=== PATIENT | female | born 1950 | race Caucasian/White ===

== ENCOUNTER → 2018-09-03 | Outpatient (CLI) | payer MEDICARE ==
[2018-09-03 13:04] LABS: HCT 46.4 % (34.0-46.0); HGB 14.6 gm/dL (11.4-16.0); MCHC 31.5 g/dL (31.0-37.0); Mean Platelet Volume 6.7; Platelet Count 421 k/uL (150-450); RBC 5.04 m/uL (3.80-5.40); RDW 13.3 % (11.5-15.5); WBC 7.5 k/uL (3.8-10.6)
[2018-09-03 13:09] LABS: Appearance,Urine Clear (Clear); Bilirubin,Urine Negative (Negative); Blood,Urine Negative (Negative); Color,Urine Light Yellow; Glucose,Urine (UA) Negative (Negative); Ketones,Urine Negative (Negative); Leukocyte Esterase,Urine Negative (Negative); Nitrite,Urine Negative (Negative); PH, Urine 5.5 (5.0-8.0); Protein,Urine Negative (Negative); Urobilinogen,Urine <2.0 mg/dL (<2.0)
[2018-09-03 13:18] LABS: ALT 28 U/L (9-52); AST 25 U/L (14-36); Albumin 4.9 g/dL (3.5-5.0); Alkaline Phosphatase 89 U/L (38-126); Anion Gap 10 mmol/L; Blood Urea Nitrogen 20 mg/dL (7-17); Calcium 10.7 mg/dL (8.4-10.2); Carbon Dioxide 27 mmol/L (22-30); Chloride 103 mmol/L (98-107); Glucose 96 mg/dL (74-99); Potassium 4.7 mmol/L (3.5-5.1); Sodium 140 mmol/L (137-145); Total Bilirubin 0.5 mg/dL (0.2-1.3); Total Protein 8.2 g/dL (6.3-8.2)
[2018-09-03 13:19] LABS: INR 0.9 (<1.2); Prothrombin Time 9.7 sec (9.0-12.0)
== END ==
LOC: LABPAT 11:49
PROVIDERS: ATTEND Orthopaedic Surgery Sports Medicine
DX: Z01.818 Encounter for other preprocedural examination (principal); Z01.812 Encounter for preprocedural laboratory examination; Z51.81 Encounter for therapeutic drug level monitoring; Z79.01 Long term (current) use of anticoagulants
CPT/HCPCS: 36415; 80053; 81003; 85027; 85610; 85730; 87070; 93005

== ENCOUNTER 2018-09-18 12:08 | Inpatient (IN) | payer MEDICARE ==
[~2018-09-18 12:08] MED LIST: ACETAMINOPHEN TAB 500 MG TAB PO ONE; DEXAMETHASONE SOD PHOSPHATE 10 MG/ML 1 ML VIAL IV ONE; HYDROmorphone 0.5 MG/0.5 ML SYRINGE IVP PRN; LIDOCAINE 1% 20 ML VIAL (10MG/ML) FOR IV START INTRADERMA PRN; MELOXICAM 7.5 MG TAB PO ONE; ONDANSETRON 4 MG/2 ML VIAL IVP ONE; ROPIVACAINE 246.25 MG, EPINEPHrine 0.5 MG, KETOROLAC 30 MG, cloNIDine HCL/PF 80 MCG, WA... MISCELLANE ONE; SCOPOLAMINE 1.5MG/72HR PATCH TRANSDERM ONE; TRANEXAMIC ACID 1,000 MG in SODIUM CHLORIDE 0.9% 100 ML IVPB ONE; ceFAZolin IN SWFI 2 GM/20 ML SYRINGE IVP ONE
[2018-09-18] MEDS ORDERED: BISACODYL 10 MG SUPP RECTAL PRN (12:32)
[2018-09-18] MEDS ORDERED: HYDROmorphone 0.5 MG/0.5 ML SYRINGE IVP PRN ×2 (12:32)
[2018-09-18] MEDS ORDERED: TEMAZEPAM 15 MG CAP PO PRN (12:32)
[2018-09-18] MEDS ORDERED: NALOXONE 0.4 MG/ML 1 ML VIAL IV PRN (12:32)
[2018-09-18] MEDS ORDERED: MAGNESIUM HYDROXIDE 2,400 MG/10 ML CUP PO PRN (12:32)
[2018-09-18] MEDS ORDERED: HYDROcodone/APAP 10-325MG 1 EACH TAB PO PRN (12:32)
[2018-09-18] MEDS ORDERED: HYDROcodone/APAP 5-325MG 1 EACH TAB PO PRN (12:32)
[2018-09-18] MEDS ORDERED: ONDANSETRON 4 MG/2 ML VIAL IVP PRN (12:32)
[2018-09-18] MEDS ORDERED: NA PHOS,M-B/NA PHOS,DI-BA 133 ML ENEMA RECTAL PRN (12:32)
[2018-09-18] MEDS ORDERED: HYDROcodone/APAP 7.5-325MG 1 EACH TAB PO PRN (12:32)
[2018-09-18] MEDS: LACTATED RINGERS 1,000 ML IV SCH ×2 (13:45→19:29)
[2018-09-18] MEDS ORDERED: PROPOFOL 10 MG/ML 20 ML VIAL IV ONE (15:41)
[2018-09-18] MEDS ORDERED: diphenhydrAMINE 50 MG/ML 1 ML VIAL ONE (15:41)
[2018-09-18] MEDS ORDERED: TRANEXAMIC ACID 1,000 MG/10 ML VIAL ONE (15:41)
[2018-09-18] MEDS ORDERED: SODIUM CHLORIDE 0.9% 100 ML BAG ONE (15:41)
[2018-09-18] MEDS ORDERED: MIDAZOLAM 2 MG/2 ML VIAL ONE (15:41)
[2018-09-18] MEDS ORDERED: ceFAZolin 3,000 MG in SODIUM CHLORIDE 0.9% IRRIGATIO 3,000 ML IRRIGATION ONE (15:43)
[2018-09-18] MEDS ORDERED: LACTATED RINGERS 1,000 ML IV ONE (17:09)
--- NOTE | 2018-09-18 18:18 | XR ---
PROCEDURE: XR knee limited LT - 2V DATE AND TIME: 09/18/2018 5:49 PM CLINICAL INDICATION: PHH; Evaluation for Postop abnormality and alignment TECHNIQUE: Department protocol with AP and crosstable lateral COMPARISON: None FINDINGS: TKR appears in anatomic positioning and alignment. Postprocedure changes noted, and no unex pected findings. IMPRESSION: Postoperative left knee - 2 views
[2018-09-18] MEDS: HYDROmorphone 0.5 MG/0.5 ML SYRINGE IVP PRN ×2 (19:12→22:47)
[2018-09-18 20:47] VITALS: BMI 30.7
[2018-09-18] MEDS: HYDROcodone/APAP 5-325MG 1 EACH TAB PO PRN (20:49)
[2018-09-18] MEDS: ASPIRIN 325 MG TAB PO SCH (20:49)
[2018-09-18] MEDS: SENNOSIDES-DOCUSATE SODIUM 1 EACH TAB PO SCH (20:49)
--- NOTE | 2018-09-18 22:06 | P.CONS ---
History of Present Illness - Reason for Consult Consult date: 09/18/18 Medical management of hypertension Requesting physician: Philip Lau - Chief Complaint Consult for medical management of hypertension - History of Present Illness The patient is a 68-year-old female with past medical history of essential hypertension for the last 6-8 months who is admitted under primary orthopedic service under Dr. Lau after having a total left knee replacement earlier today secondary to her history of severe left knee osteoarthritis. The patient reports poor pain control and rates her pain at a 9 out of 10 in the posterior left popliteal area. She otherwise has no complaints she denies any chest pain, she denies lightheadedness, she denies blurry vision focal weakness or slurred speech, she denies shortness of breath nausea vomiting or abdominal pain. Review of Systems Pertinent positives per HPI all other systems otherwise negative Past Medical History Past Medical History: Osteoarthritis (OA) History of Any Multi-Drug Resistant Organisms: None Reported Past Surgical History: Section, Joint Replacement Additional Past Surgical History / Comment(s): RIGHT KNEE REPLACED. BREAST BX BOTH SIDES, NEG. Past Anesthesia/Blood Transfusion Reactions: No Reported Reaction, Motion Sickness Past Psychological History: No Psychological Hx Reported Smoking Status: Former smoker Past Alcohol Use History: Rare Additional Past Alcohol Use History / Comment(s): QUIT 45 YRS AGO. Past Drug Use History: None Reported - Past Family History Sister(s) Family Medical History: Deep Vein Thrombosis (DVT) Mother Family Medical History: Cancer Additional Family Medical History / Comment(s): BREAST Father Family Medical History: Cancer Additional Family Medical History / Comment(s): ESOPHAGUS Son(s) Additional Family Medical History / Comment(s): LYMPHOMA Medications and Allergies Home Medications Medication Instructions Recorded Confirmed Type Naproxen Sodium [Aleve] 220 - 440 mg PO Q6H PRN 09/13/18 09/18/18 History amLODIPine BESYLATE 10 mg PO QAM 09/13/18 09/18/18 History traMADol HCL [Ultram] 50 mg PO Q6H PRN 09/13/18 09/18/18 History Allergies Allergy/AdvReac Type Severity Reaction Status Date / Time morphine Allergy Nausea & Verified 09/13/18 09:45 Vomiting Physical Exam Vitals: Vital Signs Temp Pulse Pulse Resp BP BP Pulse Ox 09/18/18 20:45 83 134/80 97 09/18/18 20:30 84 151/83 95 09/18/18 20:15 78 169/87 98 09/18/18 20:00 79 171/91 98 09/18/18 19:45 85 152/79 97 09/18/18 19:32 97.6 F 78 19 146/83 99 09/18/18 19:30 76 158/81 98 09/18/18 19:00 85 151/76 98 09/18/18 18:45 75 146/83 99 09/18/18 18:20 68 16 128/60 97 09/18/18 18:05 73 16 136/63 92 L 09/18/18 17:50 73 16 144/60 93 L 09/18/18 17:35 97.5 F L 81 16 128/88 97 09/18/18 13:40 98.5 F 73 16 147/72 98 Intake and Output 09/18/18 09/18/18 09/18/18 06:59 14:59 22:59 Intake Total 300 1201 Output Total 100 Balance 300 1101 Intake: IV 300 1201 Output: Estimated Blood Loss 100 Other: # Voids 1 Constitutional: No acute distress, conversant, pleasant Eyes: Anicteric sclerae, moist conjunctiva, no lid-lag, PERRLA ENMT: NC/AT,Oropharynx clear, no erythema, exudates Neck:Supple, FROM, no masses, or JVD, No carotid bruits; No thyromegaly Lungs: Clear to auscultation, Clear to percussion, Normal respiratory effort, no accessory muscle use Cardiovascular: Heart regular in rate and rhythm, No murmurs, gallops, or rubs no peripheral edema Abdominal: Soft Nontender, nom distended, no guarding, no rebound or rigidity, Normoactive bowel sounds No hepatomegaly, No splenomegaly, No palpable mass No abdominal wall hernia noted Skin: Normal temperature, tone, texture, turgor, No induration No subcutaneous nodules, No rash, lesions, No ulcers Extremities:No digital cyanosis No clubbing, Pedal pulses intact and symmetrical Radial pulses intact and symmetrical Normal gait and station, No calf tenderness Psychiatric: Alert and oriented to person, place and time, Appropriate affect I ntact judgement Neuro: Muscles Strength 5/5 in all 4 extremities, Sensation to light touch grossly present throughout, Cranial nerves II-XII grossly intact. No focal sensory deficits Assessment and Plan (1) Essential hypertension Current Visit: Yes Status: Acute Code(s): I10 - ESSENTIAL (PRIMARY) HYPERTENSION SNOMED Code(s): 70240824 (2) Status post total left knee replacement Current Visit: Yes Status: Acute Code(s): Z96.652 - PRESENCE OF LEFT ARTIFICIAL KNEE JOINT SNOMED Code(s): 1383961525085 (3) History of osteoarthritis Current Visit: Yes Status: Acute Code(s): Z87.39 - PERSONAL HISTORY OF DISEASES OF THE MS SYS AND CONN TISS SNOMED Code(s): 194752071 Plan: The patient is admitted under primary orthopedic service will defer our pain management to Dr. Lau, Patient is medically stable at this time with episodes of hypertension likely precipitated by poor pain control. Patient recently received a dose of [place] we will plan to restart her home antihypertensive re gimen with Norvasc 10 mg by mouth daily. We'll continue to follow her clinical course. We appreciate this consult for further questions or concerns please not hesitate to contact the sound inpatient team
[2018-09-18] MEDS: ceFAZolin IN SWFI 2 GM/20 ML SYRINGE IVP SCH (22:48)
--- NOTE | 2018-09-18 23:08 | OP ---
OPERATIVE REPORT DATE OF PROCEDURE: 09/18/2018 SURGEON: Philip Lau MD. DIRECTOR OF AUTOMATION: Brandon GEIGER. PREOPERATIVE DIAGNOSIS: Left knee osteoarthrosis. POSTOPERATIVE DIAGNOSIS: Left knee osteoarthrosis. OPERATION: Left total knee arthroplasty. ANESTHESIA: Spinal with sedation. ESTIMATED BLOOD LOSS: 100 mL. TOURNIQUET TIME: 49 minutes at 250 mmHg. COMPLICATIONS: None apparent. DRAINS: None. DISPOSITION: Post-Anesthesia Care Unit. INDICATIONS: Shagufta is a very pleasant 68-year-old female with longstanding history of left knee pain. History and physical examination were consistent with advanced left knee osteoarthrosis. She has been through significant nonoperative management up to this point. Further treatment options were discussed and she decided to go forward with left total knee arthroplasty. The risks of the procedure were discussed with her in detail. These risks include but are not limited to risk of infection, nerve damage, bleeding, pain, and a small risk of deep vein thrombosis which could lead to fatal pulmonary embolism. There is also a risk of loosening of the implant which could require revision operation. The patient understands these risks. All of her questions were answered to her satisfaction. Appropriate informed consent was obtained. DESCRIPTION OF THE PROCEDURE: The patient was identified in the preoperative holding area. Surgical site was marked by both the patient and myself. She was given 2 grams of Ancef IV for prophylactic purposes. She was then transferred to the operative suite. She was placed supine on the operating room table. Spinal anesthetic was then administered and dosed per the anesthesia department without apparent complication. Examination under anesthesia was then performed. The patient was 2-3 degrees shy of full extension. She had 95 degrees of flexion, and the medial collateral ligament, lateral collateral ligament and posterior cruciate ligaments were stable. Tourniquet was then placed high on the left upper thigh, well padded in preparation for surgery. The patient's left lower extremity was then prepped and draped in usual sterile fashion. Standard surgical pause was then undertaken to ensure that we were operating on the correct site and that appropriate preoperative antibiotics had been given. All staff in the room were in agreement and we proceeded. The outlines of the patella were marked with a surgical pen. A planned 12 cm vertical incision centered over the patella was marked with the surgical pen. The leg was then exsanguinated with an Esmarch dressing. The knee was then flexed and the tourniquet was inflated to 250 mmHg. The total tourniquet time for the procedure was 49 minutes. Incision was then made with a 10 blade scalpel. Dissection was carried down sharply to the overlying fascia. Great care was taken to minimize the skin flaps. The knee was then exposed using a standard medial parapatellar approach. A small cuff of quadriceps tendon was left for suturing. She was in quite a bit of varus preoperatively. A medial release was then made. Superficial medial collateral ligament was dissected off of the bone around to the posterior aspect of the proximal tibia. The medial meniscus was then excised as well. The lateral meniscus was also released anteriorly. The leg was then externally rotated. The patella was everted. The knee was flexed. Retractors were then placed to protect the collateral ligaments. I then proceeded to remove the infrapatellar fat pad. This was excised sharply tangentially with the fibers of the patellar tendon. I then proceeded to remove the peripheral osteophytes. This was done with a rongeur. I then proceeded with the distal femoral resection. She did have near-full extension. The planned 9 mm resection was then done. The femoral canal was then entered in the midline of the femur approximately 10 mm anterior to the origin of the posterior cruciate ligament. The devin was then advanced down to the center of the femur and placed intramedullary. Based on the preoperative radiographs, the angle between the anatomic and mechanical axis of the femur was approximately 4-5 degrees. The valgus angle of the distal femoral cutting guide was then set at 4 degrees for the left knee. The distal femoral cutting guide was then advanced over the intramedullary devin. This was seated firmly against the femur. I then, as mentioned, planned to take 9 mm off the distal femur. The cutting block was then secured onto the femur with pins. The jig was removed. The distal femoral cut was made through the slot of the block. The pins were then removed and the distal femoral cutting block was removed. The accuracy of the distal femoral cuts was checked with 2 flat bars. I then proceeded to femoral sizing. Posterior referencing sizing guide was held firmly against the resected distal surface of the femur. The posterior condyles were resting on the posterior plane of the guide. The sizing guide was then placed onto the anterior femur. The size was measured as a size 8. I then assessed for femoral rotation. The plan was for 3 degrees of external rotation. Three degrees of external rotation was placed onto the jig. These holes were then marked. I then confirmed the rotation by 3 separate methods. This was done using the epicondylar axis as well as [place] line and posterior referencing. It was deemed that the external rotation was proper. I then went forward with placing the femoral cutting block. This was placed over the previously placed pin holes. The Satya wing was then placed onto the anterior slots to ensure that we would not notch the anterior femur with the anterior femoral cut. I then proceeded with the anterior femoral cut. This was flush with the anterior cortex of the femur. The posterior cuts were then made followed by the anterior chamfer cut, then the posterior chamfer cut. The cutting block was then removed. Throughout the resection, the collateral ligaments were protected with retractors. I then placed a trial size 8 femur. It fit slightly wide mediolateral, but the narrow fit very nicely, and it fit flush with the distal end of the femur. The drill holes were then made. I then proceeded with the tibial cut. I planned for a cruciate-retaining knee. The guide was placed and set for varus, valgus and for slope. The height was set for an approximate 2 mm resection from the medial tibial plateau, which was the lower side. I was happy with the alignment and the amount of resection. The cutting block was then pinned to the proximal tibia. The alignment devin was removed and the proximal tibia was resected with a reciprocating saw. Again this was done with retractors protecting the collateral ligaments as well as the posterior cruciate ligament. I then proceeded to evaluate the flexion and extension gaps. A 10 mm block was then placed. The flexion and extension gaps were equal. I then proceeded with resection of the posterior osteophytes. She had very minimal posterior osteophytes. This was done using a curved osteotome. This resected the posterior osteophytes, and posterior capsule stripping was also done off the posterior aspect of the femur at this time. The osteophytes were then removed. I then proceeded with resection of the patella. The thickness of the patella was measured using the caliper. The thickness was 22 mm. The thickness of the anticipated patellar dome was taken into account. Resection was then performed and confirmed to be equal in 4 quadrants using a caliper. Approximately 14 mm of bone remained after the resection. A 32 x 8.5 mm standard patellar trial was then placed. The holes were drilled. The trial was then placed. I then proceeded with sizing the tibial plate. A size E tibial plate fit very nicely. I then placed the trial femur, the tibial tray and the patellar button. A 10 mm trial tibial insert was also placed. The components fit very nicely. She had full extension and flexion. The extension and flexion gaps were equal and stable to both varus and valgus stress. The patella tracked appropriately. Tibial tray rotation was then marked with a Bovie. This was externally rotated properly. I then proceeded with tibial preparation. I first drilled the femoral holes and removed the femoral component. The tibial tray was then set for proper external rotation as well as mediolateral placement onto the tibia. It was then pinned into place. I then proceeded with punching the keel. I then decided to proceed with cementing of all of our components. The knee was thoroughly irrigated with sterile saline solution via pulse lavage. The lateral geniculate artery was identified and cauterized. All blood was removed from the bone of the tibia, femur and patella with pulse lavage. I then proceeded with cementing. Two packs of antibiotic bone cement were prepared on the back table by the surgical training specialist. I then proceeded with cementing of the tibia first. The cement was impacted into the keel as well as deeply seated into the bone. A second coat of cement was then placed. The tibia was then impacted into place. Excess cement was removed with [place]'s and jokers. I then proceeded with cementing of the femoral component. The femoral component was also cemented using standard technique. Excess cement was removed. A 10 mm trial insert was then placed into the knee. It was brought into full extension with a constant axial load placed until the cement had hardened. The patellar component was then cemented. This was held firmly with a compressive device until the cement had dried. When the cement had dried, the knee was taken out of extension. All excess cement was removed from around the prosthesis. I then trialed the knee with a 10 mm insert, then a 12 mm inset and then a 14 mm insert. Flexion and extension gaps felt much better with the 14. The knee was stable. It came into full extension. I decided to go forward with a 14 mm cross-linked cruciate-retaining tibial insert. Polyethylene was then placed onto the tibial tray and locked into place. The knee was then reduced. The knee was again further irrigated with sterile saline solution with antibiotic added. The tourniquet was then deflated. The total tourniquet time for the procedure was 49 minutes at 250 mmHg. Final components were Tabatha Persona size 8 narrow cruciate-retaining femoral component, a size E tibial tray, a 14 mm medial- congruent cruciate-retaining polyethylene insert and a 32 x 8.5 mm patella. I then proceeded with closure. Again the knee was thoroughly irrigated. The quadriceps tendon and the medial retinaculum were reapproximated with #2 Ethibond suture. The extensor mechanism was then closed with a running #2 Quill suture. Subcutaneous tissues were then closed with 2-0 Vicryl interrupted suture. The skin was closed with a running 3-0 Quill suture. Dermabond was applied to the incision. Sterile compressive dressings were then applied. All sponge and needle counts were deemed correct prior to closure. The patient tolerated the procedure without apparent complication. She was transferred to the recovery room in stable condition. MMODL / IJN: [id number] /
[2018-09-19] MEDS: HYDROmorphone 0.5 MG/0.5 ML SYRINGE IVP PRN ×3 (01:41→19:12)
[2018-09-19] MEDS: LACTATED RINGERS 1,000 ML IV SCH ×3 (03:03→13:33)
[2018-09-19] MEDS: HYDROcodone/APAP 5-325MG 1 EACH TAB PO PRN ×4 (04:39→23:05)
[2018-09-19] MEDS: DIAZEPAM 5 MG TAB PO PRN ×3 (05:46→23:11)
[2018-09-19] MEDS: ceFAZolin IN SWFI 2 GM/20 ML SYRINGE IVP SCH (05:47)
[2018-09-19] MEDS: MULTIVITAMINS, THERA 1 EACH TAB PO SCH (08:24)
[2018-09-19] MEDS: ASPIRIN 325 MG TAB PO SCH ×2 (08:24→21:18)
[2018-09-19] MEDS: amLODIPine 10 MG TAB PO SCH (08:24)
[2018-09-19] MEDS: hydrOXYzine PAMOATE 25 MG CAP PO PRN ×2 (08:27→23:10)
[2018-09-19] MEDS: oxyCODONE ER 10 MG TAB.ER.12H PO SCH ×2 (09:33→21:18)
[2018-09-19 10:02] LABS: Basophils % (A) 0 %; Eosinophils % (A) 0 %; HGB 12.8 gm/dL (11.4-16.0); Lymphocytes # (A) 1.4 k/uL (1.0-4.8); Lymphocytes % (A) 9 %; MCH 29.1 pg (25.0-35.0); MCV 90.9 fL (80.0-100.0); Mean Platelet Volume 7.2; Monocytes % (A) 6 %; Neutrophils # (A) 13.4 k/uL (1.3-7.7); Neutrophils % (A) 83 %; Platelet Count 416 k/uL (150-450); RDW 13.6 % (11.5-15.5); WBC 16.1 k/uL (3.8-10.6)
--- NOTE | 2018-09-19 10:17 | P.PN ---
Subjective Progress Note Date: 09/19/18 Principal diagnosis: Left knee replacement Patient was seen and examined. No acute events overnight. Patient reports left knee pain, well controlled with current pain medication. She denies any chest pain, shortness of breath or palpitations. Plans to do rehab at home. Urin ating okay. No bowel movement yet, but passing gas. Objective - Vital Signs Vital signs: Vital Signs Temp 98.6 F 09/19/18 07:00 Pulse 66 09/19/18 07:00 Resp 16 09/19/18 07:00 BP 131/77 09/19/18 07:00 Pulse Ox 95 09/19/18 07:00 Intake & Output 09/18/18 09/19/18 09/19/18 18:59 06:59 18:59 Intake Total 1501 450 Output Total 100 Balance 1401 450 Intake: IV 1501 Oral 450 Output: Estimated Blood Loss 100 Other: Voiding Method Toilet # Voids 2 - Exam General: [non toxic], [no distress], [appears at stated age] Derm: [warm], [dry] Head: [atraumatic], [normocephalic], [symmetric] Eyes: [EOMI], [no lid lag], [anicteric sclera] Mouth: [no lip lesion], [mucus membranes moist] Cardiovascular: [S1S2 reg], [no murmur], [positive DP pulse bilateral] Lungs: [CTA bilateral], [no rhonchi, no rales] , [no accessory muscle use] Abdominal: [soft], [ nontender to palpation], [no guarding], [no appreciable organomegaly] Ext: [no gross muscle atrophy], [no edema], [no contractures], [left knee dressing clean dry and intact] Psych: [Alert], [oriented], [appropriate affect] - Labs CBC & Chem 7: 09/19/18 08:59 Labs: Abnormal Lab Results - Last 24 Hours (Table) 09/19/18 Range/Units 08:59 WBC 16.1 H (3.8-10.6) k/uL Neutrophils # 13.4 H (1.3-7.7) k/uL Assessment and Plan Assessment: Assessment and Plan Leukocytosis Hypertension Left knee osteoarthritis status post total left knee replacement Leukocytosis of 16.1. Likely reactive due to pain and stress. Patient afebrile, no signs of infection. Plan: Repeat CBC tomorrow. BP 131/77. Anticipate BP to be elevated due to pain. Plan: Ensure adequate pain control. Continue amlodipine. Monitor vitals, adjust medications as necessary. POD 1. Plan: Ensure adequate pain control. Weightbearing as per orthopedic recommendations. Follow orthopedic recommendations. Follow PT consult. Continue aspirin for DVT prophylaxis. Thank you for this consult. Please call with any additional questions.
--- NOTE | 2018-09-19 10:33 | P.PN ---
Subjective Progress Note Date: 09/19/18 Principal diagnosis: S/P Left TKA Patient is seen at bedside this morning. She is postop day #1 from left total knee arthroplasty. She has pain at the surgical site as expected but denies any new complaints. She denies numbness, tingling or calf pain. Review of systems is negative for fever, chills, chest pain, shortness of breath or other Objective - Vital Signs Vital signs: Vital Signs Temp 98.6 F 09/19/18 07:00 Pulse 66 09/19/18 07:00 Resp 16 09/19/18 07:00 BP 131/77 09/19/18 07:00 Pulse Ox 95 09/19/18 07:00 Intake & Output 09/18/18 09/19/18 09/19/18 18:59 06:59 18:59 Intake Total 1501 450 Output Total 100 Balance 1401 450 Intake: IV 1501 Oral 450 Output: Estimated Blood Loss 100 Other: Voiding Method Toilet # Voids 2 - Exam Inspection reveals a benign surgical wound. There is no active bleeding or drainage. Neurovascular status is intact throughout the lower extremity with motor and sensation fully intact. Calf is soft and nontender. 2+ dorsalis pedis pulse and less than 2 second cap refill is present. - Constitutional General appearance: Present: no acute distress - Labs CBC & Chem 7: 09/19/18 08:59 Labs: Abnormal Lab Results - Last 24 Hours (Table) 09/19/18 Range/Units 08:59 WBC 16.1 H (3.8-10.6) k/uL Neutrophils # 13.4 H (1.3-7.7) k/uL Assessment and Plan (1) Status post total left knee replacement Narrative/Plan: She will continue with routine postop orthopedic protocol including pain management, wound care, PT, DVT prophylaxis and medical management. Expect that she will transfer to home tomorrow Current Visit: Yes Status: Acute Priority: Medium Code(s): Z96.652 - PRESENCE OF LEFT ARTIFICIAL KNEE JOINT SNOMED Code(s): 2328230954652 Time with Patient: Less than 30
[2018-09-19] MEDS: SENNOSIDES-DOCUSATE SODIUM 1 EACH TAB PO SCH (21:18)
[2018-09-20] MEDS: HYDROmorphone 0.5 MG/0.5 ML SYRINGE IVP PRN (01:49)
[2018-09-20] MEDS: LACTATED RINGERS 1,000 ML IV SCH ×3 (04:24→17:40)
[2018-09-20] MEDS: HYDROcodone/APAP 5-325MG 1 EACH TAB PO PRN (05:52)
[2018-09-20] MEDS: hydrOXYzine PAMOATE 25 MG CAP PO PRN (05:53)
[2018-09-20] MEDS: oxyCODONE ER 10 MG TAB.ER.12H PO SCH ×2 (08:20→21:33)
[2018-09-20] MEDS: ASPIRIN 325 MG TAB PO SCH ×2 (08:20→21:33)
[2018-09-20] MEDS: amLODIPine 10 MG TAB PO SCH (08:20)
[2018-09-20] MEDS: MULTIVITAMINS, THERA 1 EACH TAB PO SCH (08:20)
--- NOTE | 2018-09-20 08:51 | P.DS ---
Providers Expected date of discharge: 09/20/18 Attending physician: Philip Lau Consults: 09/18/18 12:32 Consult Physician Routine Consulting Provider: Lulu Cleary Consult Reason/Comments: post op medical mangement Do you want consulting provider notified?: Yes Primary care physician: Eugene Gross - Discharge Diagnosis(es) (1) Status post total left knee replacement Patient was admitted to the OR on 09/18/2018 to undergo a left total knee arthroplasty. She had failed conservative measures as an outpatient and desired to proceed with elective surgery after given informed consent. She underwent the above procedure which she tolerated well without complication. Postoperative hospital course has remained without complication. On day of discharge she is afebrile, vital signs stable, labs within acceptable ranges, tolerating by mouth meds and diet, voiding without difficulty, positive flatus, denies abdominal pain or calf pain, pain is controlled on oral pain medication and has no new complaints. Wound is benign, neurovascular status is intact, calf is soft and nontender, abdomen soft and nontender. Review of systems is negative for numbness, tingling, fever, chills, chest pain, shortness breath, nausea, vomiting, dizziness, headaches, slurred speech or other Current Visit: Yes Status: Acute Priority: Medium Procedures: Left TKA Patient Condition at Discharge: Good Plan - Discharge Summary Discharge Rx Participant: No New Discharge Prescriptions: New Aspirin 325 mg PO BID #60 tab Docusate [Colace] 100 mg PO BID #60 capsule HYDROcodone/APAP 7.5-325MG [[place] 7.5-325] 1 - 2 each PO Q6HR PRN #56 tab PRN Reason: Pain oxyCODONE ER [OxyCONTIN] 10 mg PO Q12HR 5 Days #10 tab No Action Naproxen Sodium [Aleve] 220 - 440 mg PO Q6H PRN PRN Reason: Pain amLODIPine BESYLATE 10 mg PO QAM traMADol HCL [Ultram] 50 mg PO Q6H PRN PRN Reason: Pain Discharge Medication List Naproxen Sodium [Aleve] 220 - 440 mg PO Q6H PRN 09/13/18 [History] amLODIPine BESYLATE 10 mg PO QAM 09/13/18 [History] traMADol HCL [Ultram] 50 mg PO Q6H PRN 09/13/18 [History] Aspirin 325 mg PO BID #60 tab 09/20/18 [Rx] Docusate [Colace] 100 mg PO BID #60 capsule 09/20/18 [Rx] HYDROcodone/APAP 7.5-325MG [[place] 7.5-325] 1 - 2 each PO Q6HR PRN #56 tab 09/20/18 [Rx] oxyCODONE ER [OxyCONTIN] 10 mg PO Q12HR 5 Days #10 tab 09/20/18 [Rx] Follow up Appointment(s)/Referral(s): Philip Lau MD [STAFF PHYSICIAN] - 10 Days Activity/Diet/Wound Care/Special Instructions: Keep wound clean and dry Take meds as directed Follow-up with Dr. Lau in office Weight bear as tolerated May shower in 3 days if no bleeding Discharge Disposition: HOME WITH HOME HEALTH SERVICES
[2018-09-20] MEDS ORDERED: oxyCODONE-APAP 10-325MG 1 EACH TAB PO PRN (09:08)
[2018-09-20] MEDS: oxyCODONE-APAP 10-325MG 1 EACH TAB PO PRN ×2 (13:07→19:16)
[2018-09-20] MEDS ORDERED: diphenhydrAMINE 25 MG CAP PO STA (17:22)
--- NOTE | 2018-09-20 17:27 | P.PN ---
Subjective Progress Note Date: 09/20/18 Principal diagnosis: left knee replacement patient was seen and examined. No acute events overnight. She is postop day 1 today. Patient complains of excruciating left knee pain that started around 8 PM and lasted to 3 and last night. She was receiving Dilaudid injections ove rnight. [place] switched to Percocet and oxycodone. Patient reports better controlled pain at this time. She is tolerating her diet well. Objective - Vital Signs Vital signs: Vital Signs Temp 98 F 09/20/18 15:00 Pulse 81 09/20/18 15:00 Resp 12 09/20/18 15:00 BP 120/65 09/20/18 15:00 Pulse Ox 94 L 09/20/18 15:00 Intake & Output 09/19/18 09/20/18 09/20/18 18:59 06:59 18:59 Intake Total 1780 480 480 Balance 1780 480 480 Intake: Oral 1780 480 480 Other: Voiding Method Toilet # Voids 2 3 - Exam General: [non toxic], [no distress], [appears at stated age] Derm: [warm], [dry] Head: [atraumatic], [normocephalic], [symmetric] Eyes: [EOMI], [no lid lag], [anicteric sclera] Mouth: [no lip lesion], [mucus membranes moist] Cardiovascular: [S1S2 reg], [no murmur], [positive DP pulse bilateral] Lungs: [CTA bilateral], [no rhonchi, no rales] , [no accessory muscle use] Abdominal: [soft], [ nontender to palpation], [no guarding], [no appreciable organomegaly] Ext: [no gross muscle atrophy], [no edema], [no contractures], [left knee dressing clean dry and intact] Psych: [Alert], [oriented], [appropriate affect] - Labs CBC & Chem 7: 09/19/18 08:59 Assessment and Plan Assessment: Assessment and Plan Leukocytosis Hypertension Left knee osteoarthritis status post total left knee replacement Leukocytosis of 16.1. Likely reactive due to pain and stress. Patient afebrile, no signs of infection. Plan: Repeat CBC tomorrow. BP 120/65. Anticipate BP to be elevated due to pain. Plan: Ensure adequate pain control. Continue amlodipine. Monitor vitals, adjust medications as necessary. POD 2. Plan: Ensure adequate pain control. Weightbearing as per orthopedic recommendations. Follow orthopedic recommendations. Follow PT consult. Continue aspirin for DVT prophylaxis. Thank you for this consult. Please call with any additional questions. Plans for DC tomorrow.
[2018-09-20] MEDS: SENNOSIDES-DOCUSATE SODIUM 1 EACH TAB PO SCH (21:32)
[2018-09-21] MEDS: oxyCODONE-APAP 10-325MG 1 EACH TAB PO PRN ×2 (01:17→15:15)
[2018-09-21] MEDS: LACTATED RINGERS 1,000 ML IV SCH ×3 (02:33→21:50)
[2018-09-21] MEDS: diphenhydrAMINE 25 MG CAP PO PRN (03:37)
[2018-09-21 08:31] LABS: Basophils # (A) 0.1 k/uL (0-0.2); Basophils % (A) 1 %; Eosinophils # (A) 0.3 k/uL (0-0.7); Eosinophils % (A) 3 %; HCT 35.5 % (34.0-46.0); HGB 11.6 gm/dL (11.4-16.0); Lymphocytes % (A) 20 %; MCH 30.2 pg (25.0-35.0); MCHC 32.7 g/dL (31.0-37.0); MCV 92.4 fL (80.0-100.0); Mean Platelet Volume 7.3; Monocytes # (A) 0.8 k/uL (0-1.0); Monocytes % (A) 8 %; Neutrophils # (A) 6.9 k/uL (1.3-7.7); Neutrophils % (A) 67 %; Platelet Count 357 k/uL (150-450); RBC 3.84 m/uL (3.80-5.40); RDW 13.7 % (11.5-15.5); WBC 10.3 k/uL (3.8-10.6)
[2018-09-21] MEDS: ASPIRIN 325 MG TAB PO SCH ×2 (08:59→22:08)
[2018-09-21] MEDS: oxyCODONE ER 10 MG TAB.ER.12H PO SCH ×2 (08:59→22:08)
[2018-09-21] MEDS: MULTIVITAMINS, THERA 1 EACH TAB PO SCH (08:59)
[2018-09-21] MEDS: amLODIPine 10 MG TAB PO SCH (09:02)
--- NOTE | 2018-09-21 09:22 | P.PN ---
Subjective Progress Note Date: 09/21/18 Principal diagnosis: Primary osteoarthritis left knee. Status post total left knee arthroplasty. This is a 68-year-old female who is status post total left knee arthroplasty. She complains of increased pain today. Her pulse ox has been in the low 90s and she has a temp of 99.3. She states that there is known to get her home from the hospital today. She states her has to work today but will be off tomorrow. Objective - Vital Signs Vital signs: Vital Signs Temp 99.3 F 09/21/18 07:26 Pulse 89 09/21/18 07:26 Resp 14 09/21/18 07:26 BP 117/64 09/21/18 07:26 Pulse Ox 90 L 09/21/18 07:26 Intake & Output 09/20/18 09/21/18 09/21/18 18:59 06:59 18:59 Intake Total 480 0 240 Balance 480 0 240 Intake: Intake, IV Titration 0 Amount Lactated Ringers 1,000 ml 0 @ 75 mls/hr IV .[id number] [facility] Rx#:[id number] Oral 480 240 Other: Voiding Method Toilet # Voids 3 3 - Exam This is a 68-year-old female in no acute distress. She is alert and oriented 3. Exam of the lower extremities reveals that her incision looks good with no sign of infection. There is mild ecchymosis. She has minimal drainage from the incision. She has full foot and ankle motion without difficulty. Neurovascular status to the lower extremity is intact. - Labs CBC & Chem 7: 09/21/18 07:05 Assessment and Plan (1) Oxygen desaturation Current Visit: Yes Status: Acute Code(s): R09.02 - HYPOXEMIA SNOMED Code(s): 587028383 (2) Essential hypertension Current Visit: Yes Status: Acute Code(s): I10 - ESSENTIAL (PRIMARY) HYPERTENSION SNOMED Code(s): 11081529 (3) History of osteoarthritis Current Visit: Yes Status: Acute Code(s): Z87.39 - PERSONAL HISTORY OF DISEASES OF THE MS SYS AND CONN TISS SNOMED Code(s): 833958853 (4) Status post total left knee replacement Current Visit: Yes Status: Acute Priority: Medium Code(s): Z96.652 - PRESENCE OF LEFT ARTIFICIAL KNEE JOINT SNOMED Code(s): 5329587186083 Plan: The clinical findings are discussed with the patient. I have instructed her on proper use of her incentive spirometer. I recommended that she place the thigh- high compression stocking to the operative leg. She is requesting discharge to home tomorrow. We will plan discharge tomorrow if vitals are stable.
--- NOTE | 2018-09-21 12:06 | P.PN ---
Subjective Progress Note Date: 09/21/18 Principal diagnosis: medical management Patient was seen and examined. No acute events overnight. Patient reports improvement in her left knee pain since starting pain regimen yesterday. Patient reports that the food here is horrible. She denies any fever or chills. No nausea or vomiting. Plans on DC tomorrow. Patient noted to have low O2 saturation of 90% on room air. She has no history of asthma or COPD. States that she has been blowing 1500 on the spirometer which was her limit prior to surgery. Objective - Vital Signs Vital signs: Vital Signs Temp 99.3 F 09/21/18 07:26 Pulse 89 09/21/18 07:26 Resp 14 09/21/18 07:26 BP 117/64 09/21/18 07:26 Pulse Ox 90 L 09/21/18 07:26 Intake & Output 09/20/18 09/21/18 09/21/18 18:59 06:59 18:59 Intake Total 480 0 240 Balance 480 0 240 Intake: Intake, IV Titration 0 Amount Lactated Ringers 1,000 ml 0 @ 75 mls/hr IV .[id number] [facility] Rx#:[id number] Oral 480 240 Other: Voiding Method Toilet # Voids 3 3 - Exam General: [non toxic], [no distress], [appears at stated age] Derm: [warm], [dry] Head: [atraumatic], [normocephalic], [symmetric] Eyes: [EOMI], [no lid lag], [anicteric sclera] Mouth: [no lip lesion], [mucus membranes moist] Cardiovascular: [S1S2 reg], [no murmur], [positive DP pulse bilateral] Lungs: [CTA bilateral], [no rhonchi, no rales] , [no accessory muscle use] Abdominal: [soft], [ nontender to palpation], [no guarding], [no appreciable organomegaly] Ext: [no gross muscle atrophy], [no edema], [no contractures], [left knee dressing clean dry and intact] Psych: [Alert], [oriented], [appropriate affect] - Labs CBC & Chem 7: 09/21/18 07:05 Assessment and Plan Assessment: Assessment and Plan hypoxia Leukocytosis Hypertension Left knee osteoarthritis status post total left knee replacement SpO2 90% on room air. No history of asthma or COPD. Nonsmoker. Plan: O2 per NC to maintain O2 saturation greater than 92%. Incentive spirometry. Follow chest x-ray. Leukocytosis of 16.1 to within normal limits. Likely reactive due to pain and stress. Patient afebrile, no signs of infection. Plan: Resolved BP 117/64. Anticipate BP to be elevated due to pain. Plan: Ensure adequate pain control. Continue amlodipine. Monitor vitals, adjust medications as necessary. POD 3. Plan: Ensure adequate pain control. Weightbearing as per orthopedic recommendations. Follow orthopedic recommendations. Follow PT consult. Continue aspirin for DVT prophylaxis. Thank you for this consult. Please call with any additional questions. Plans for DC tomorrow.
--- NOTE | 2018-09-21 15:03 | XR ---
EXAMINATION TYPE: XR chest 1V DATE OF EXAM: 09/21/2018 COMPARISON: NONE HISTORY: Hypoxemia TECHNIQUE: Single frontal view of the chest is obtained. FINDINGS: Heart and mediastinum are normal. Lungs are clear. Diaphragm is normal. There are no hilar masses. IMPRESSION: No active cardiopulmonary disease. Normal heart.
[2018-09-21] MEDS: SENNOSIDES-DOCUSATE SODIUM 1 EACH TAB PO SCH (22:08)
[2018-09-22] MEDS: LACTATED RINGERS 1,000 ML IV SCH ×3 (02:23→21:16)
[2018-09-22] MEDS: oxyCODONE ER 10 MG TAB.ER.12H PO SCH ×2 (07:24→21:15)
[2018-09-22] MEDS: ASPIRIN 325 MG TAB PO SCH ×2 (07:25→21:16)
[2018-09-22] MEDS: amLODIPine 10 MG TAB PO SCH (07:25)
[2018-09-22] MEDS: MULTIVITAMINS, THERA 1 EACH TAB PO SCH (07:25)
[2018-09-22] MEDS: oxyCODONE-APAP 10-325MG 1 EACH TAB PO PRN (10:20)
--- NOTE | 2018-09-22 10:30 | P.PN ---
Subjective Progress Note Date: 09/22/18 Principal diagnosis: Medical management 68-year-old female with past medical history of essential hypertension for the last 6-8 months who is admitted under primary orthopedic service under Dr. Lau after having a total left knee replacement earlier today secondary to her history of severe left knee osteoarthritis. Patient was started on aspirin for DVT prophylaxis post surgery. Patient complained of pain in the left knee on postop days 2 and 3. Her pain medication was switched from [place] to Percocet and oxycodone. Patient was noted to have a leukocytosis of 16.1 on day 1 which resolved on day 2. This was likely reactive due to pain and stress. She was noted to have a low O2 saturation on room air. Her saturation ranged from 90% to 94%. Patient was advised to continue spirometry. Chest x-ray was negative for acute process. Patient was seen and examined. No acute events overnight. Postop day 4. Patient continues to complain of swelling left lower extremity. She complains of excruciating 10 out of 10 pain of the left foot, especially when weightbearing. Pain is over the dorsum and ventral aspect of the midfoot. She denies any history of gout. Objective - Vital Signs Vital signs: Vital Signs Temp 98.7 F 09/22/18 07:03 Pulse 90 09/22/18 07:03 Resp 16 09/22/18 07:03 BP 109/67 09/22/18 07:03 Pulse Ox 91 L 09/22/18 07:03 Intake & Output 09/21/18 09/22/18 09/22/18 18:59 06:59 18:59 Intake Total 660 1220 240 Balance 660 1220 240 Intake: Oral 660 1220 240 Other: Voiding Method Toilet # Voids 3 2 # Bowel Movements 2 - Exam General: [non toxic], [no distress], [appears at stated age] Derm: [warm], [dry] Head: [atraumatic], [normocephalic], [symmetric] Eyes: [EOMI], [no lid lag], [anicteric sclera] Mouth: [no lip lesion], [mucus membranes moist] Cardiovascular: [S1S2 reg], [no murmur], [positive DP pulse bilateral] Lungs: [CTA bilateral], [no rhonchi, no rales] , [no accessory muscle use] Abdominal: [soft], [ nontender to palpation], [no guarding], [no appreciable organomegaly] Ext: [no gross muscle atrophy], [no edema], [no contractures], [left knee dressing clean dry and intact], [left foot tenderness to palpation over the dorsum and ventral, limited range of motion] Psych: [Alert], [oriented], [appropriate affect] - Labs CBC & Chem 7: 09/21/18 07:05 Assessment and Plan Assessment: Assessment and Plan Left foot pain Low O2 saturation Leukocytosis Hypertension Left knee osteoarthritis status post total left knee replacement Unsure if related to surgery. Possible gout? Plan: Follow duplex of the left lower extremity. Follow x-rays. Ensure adequate pain control. SpO2 91% on room air. No history of asthma or COPD. Chest x-ray negative. Likely atelectasis post surgery. Patient is hemodynamically stable otherwise. Nonsmoker. Plan: O2 per NC to maintain O2 saturation greater than 92%. Incentive spirometry. Consider walk test prior to discharge. Leukocytosis of 16.1 to within normal limits. Likely reactive due to pain and stress. Patient afebrile, no signs of infection. Plan: Resolved BP 109/67. Anticipate BP to be elevated due to pain. Plan: Ensure adequate pain control. Continue amlodipine. Monitor vitals, adjust medications as necessary. POD 4. Plan: Ensure adequate pain control. Weightbearing as per orthopedic recommendations. Follow orthopedic recommendations. Follow PT consult. Continue aspirin for DVT prophylaxis. Discharge planning as per orthopedic recommendations.
--- NOTE | 2018-09-22 11:17 | P.PN ---
Subjective Progress Note Date: 09/22/18 Principal diagnosis: Primary osteoarthritis left knee. Status post total left knee arthroplasty. This is a 68-year-old female who is status post total left knee arthroplasty. She complains of increased pain in her foot today. Her pulse ox has overall improvement from yesterday morning and she is afebrile. She states that due to the foot pain she is unable to ambulate and is afraid that she may fall. Physical therapy also reports that the patient has been stating to her that she needed a manipulation to her other knee after knee replacement surgery and she feels that she will need a manipulation on this knee. The therapist has discharged her that she is doing well with range of motion at this point but the patient states that she still feels that she will need a manipulation secondary to stiffness of the knee. Her vital signs are stable. Objective - Vital Signs Vital signs: Vital Signs Temp 98.7 F 09/22/18 07:03 Pulse 90 09/22/18 07:03 Resp 16 09/22/18 07:03 BP 109/67 09/22/18 07:03 Pulse Ox 91 L 09/22/18 07:03 Intake & Output 09/21/18 09/22/18 09/22/18 18:59 06:59 18:59 Intake Total 660 1220 240 Balance 660 1220 240 Intake: Oral 660 1220 240 Other: Voiding Method Toilet # Voids 3 2 2 # Bowel Movements 2 2 - Exam This is a 68-year-old female in no acute distress. She is alert and oriented 3. Exam of the lower extremities reveals that her incision looks good with no sign of infection. There is minimal ecchymosis and no erythema. She has no drainage from the incision. There is slight Tenderness with palpation. No calf redness or swelling. There is no erythema to the foot. There is significant tenderness with palpation about the plantar aspect of the foot. There is a moderate size bunion. Skin intact. Neurovascular status to the lower extremity is intact. - Labs CBC & Chem 7: 09/21/18 07:05 Assessment and Plan (1) Oxygen desaturation Current Visit: Yes Status: Acute Code(s): R09.02 - HYPOXEMIA SNOMED Co de(s): 896986298 (2) Essential hypertension Current Visit: Yes Status: Acute Code(s): I10 - ESSENTIAL (PRIMARY) HYPERTENSION SNOMED Code(s): 93361922 (3) History of osteoarthritis Current Visit: Yes Status: Acute Code(s): Z87.39 - PERSONAL HISTORY OF DISEASES OF THE MS SYS AND CONN TISS SNOMED Code(s): 570676484 (4) Status post total left knee replacement Current Visit: Yes Status: Acute Priority: Medium Code(s): Z96.652 - PRESENCE OF LEFT ARTIFICIAL KNEE JOINT SNOMED Code(s): 0541638187674 Plan: The clinical findings are discussed with the patient. We attempted a thigh-high stocking to the operative leg yesterday which the patient did not tolerate. A foot x-rayed has been ordered by internal medicine which shows no bony abnormality or fracture. She does have mild arthritis to the foot. I have ordered a venous Doppler to rule out DVT. I have talked to the patient about possible discharge if the Doppler is negative. She insists that she is unable to ambulate secondary to her foot pain. I will await Doppler results and have further discussion regarding discharge with the patient that time. She reports no history of gout but we did discuss that this may be a consideration regarding her foot pain. We will continue to follow.
--- NOTE | 2018-09-22 11:28 | XR ---
EXAMINATION TYPE: XR foot complete LT , 3 VIEWS DATE OF EXAM ORDERED: 09/22/2018 HISTORY: pain. COMPARISON: None. FINDINGS: There is a valgus deformity. There is fibular deviation of the second digit. There are deg enerative changes in the left first MTP joint. No fracture or dislocation is seen. There is soft tiss ue swelling over the dorsum of the foot. IMPRESSION: 1. NO ACUTE OSSEOUS LESION. 2. DEGENERATIVE CHANGE.
--- NOTE | 2018-09-22 11:35 | US ---
EXAMINATION TYPE: US venous doppler duplex LE LT DATE OF EXAM: 09/22/2018 11:21 AM COMPARISON: NONE CLINICAL HISTORY: Lower leg pain.. Left foot pain s/o Left knee surgery SIDE PERFORMED: Left TECHNIQUE: The lower extremity deep venous system is examined utilizing real time linear array sonog [place] with graded compression, doppler sonography and color-flow sonography. VESSELS IMAGED: External Iliac Vein (EIV) Common Femoral Vein Deep Femoral Vein Greater Saphenous Vein * Femoral Vein Popliteal Vein Small Saphenous Vein * Proximal Calf Veins (* superficial vessels) Left Leg: Negative for DVT, large complex fluid collection left pop fossa= 7.0 x 2.8 x 5.9 cm There is a complex fluid collection in the left popliteal fossa. IMPRESSION: 1. THIS EXAMINATION IS NEGATIVE FOR DVT WITHIN THE LEFT LEG. 2. COMPLEX POPLITEAL FOSSA CYST.
[2018-09-22] MEDS: diphenhydrAMINE 25 MG CAP PO PRN (14:54)
[2018-09-22] MEDS: SENNOSIDES-DOCUSATE SODIUM 1 EACH TAB PO SCH (21:16)
[2018-09-23 01:47] VITALS: RESP 16
[2018-09-23] MEDS: LACTATED RINGERS 1,000 ML IV SCH (03:19)
[2018-09-23 08:08] VITALS: BP 102/66; PULSE 84; TEMP 98.9
[2018-09-23] MEDS: oxyCODONE ER 10 MG TAB.ER.12H PO SCH (09:00)
[2018-09-23] MEDS: ASPIRIN 325 MG TAB PO SCH (09:00)
[2018-09-23] MEDS: amLODIPine 10 MG TAB PO SCH (09:00)
[2018-09-23] MEDS: MULTIVITAMINS, THERA 1 EACH TAB PO SCH (09:00)
--- NOTE | 2018-09-23 11:23 | P.PN ---
Subjective Chart was reviewed. Discussed with nurse. Patient was admitted for elective left knee total arthroplasty. Past medical history includes hypertension. Patient tolerated surgery well and continues to recover well and she's been working with physical therapy without any difficulties. Blood pressure has been in softer but acceptable range with amlodipine. Patient tells me that her blood pressure usually is to be elevated situationally but not constantly and she is in process of evaluating this with her primary care physician. Previously re ported left foot pain, patient at this time reports to improve. REVIEW OF SYSTEMS: CONSTITUTIONAL: No fever or chills HEENT: No changes in vision or voice CARDIOVASCULAR: no chest pain or abnormal heart beats, or any swelling in ankles or feet. RESPIRATORY: No wheezing or coughing. GASTROINTESTINAL: No abdominal pain, no nausea no vomiting no constipation or diarrhea GENITOURINARY: no any urinary urgency, frequency or burning, and there has been no blood in her urine. no flank pain. MUSCULOSKELETAL: She notes full range of motion of all her joints without pain or swelling. NEUROLOGICAL: , no headache. no vision changes, or fainting. No numbness or tingling. Objective - Vital Signs Vital signs: Vital Signs Temp 98.9 F 09/23/18 07:00 Pulse 84 09/23/18 07:00 Resp 16 09/23/18 07:00 BP 102/66 09/23/18 07:00 Pulse Ox 90 L 09/23/18 07:00 Intake & Output 09/22/18 09/23/18 09/23/18 18:59 06:59 18:59 Intake Total 480 540 490 Balance 480 540 490 Intake: Oral 480 540 490 Other: Voiding Method Toilet # Voids 3 2 # Bowel Movements 2 - Exam Vital Signs: I have reviewed the vital signs. GENERAL: Well-nourished, Well-developed , no apparent distress, cooperative CVS: +S1/S2, No murmurs or gallops. RESP: Unlabored respiratory effort. Clear to auscultation bilaterally. Abdomen: Bowel sounds present in all 4 quadrants, Soft to palpation, Nontender/Nondistended, No hepatosplenomegaly, no hernias or masses, no CVA tnderness Musculoskeletal: Extremities w/o deformity, No cyanosis or clubbing, no joint swelling No peripheral edema Psych: Awake, Alert, & Oriented (AAO) x3 Appropriate mood and affect - Labs CBC & Chem 7: 05/04/19 07:05 Assessment and Plan Plan: 1. Hypertension 2. Osteoarthritis status post left TKA Patient is stable for discharge from medicine service standpoint, she can continue her preadmission medication amlodipine and I discussed with her about keeping an eye on her blood pressures and further discuss with her primary care physician.
[2018-09-23] MEDS: oxyCODONE-APAP 10-325MG 1 EACH TAB PO PRN (13:33)
== END 2018-09-23 15:45 | disposition home health service (06) | DRG 470 ==
LOC: OR 12:08 → EDSTATUS 14:55 → 4SSUR 17:40 → OBSVTOIN 09-20 13:58 → INTOOBSV 09-20 13:58 → OR 09-20 13:58
PROVIDERS: ADMIT Orthopaedic Surgery Sports Medicine; ATTEND Orthopaedic Surgery Sports Medicine
PROC: 0SRD0J9 Replacement of Left Knee Joint with Synthetic Substitute, Cemented, Open Approach (ICD-10-PCS; principal; 2018-09-18 14:55)
DX: M17.12 Unilateral primary osteoarthritis, left knee (principal); J98.11 Atelectasis; G89.18 Other acute postprocedural pain; D72.829 Elevated white blood cell count, unspecified; R09.02 Hypoxemia; M19.072 Primary osteoarthritis, left ankle and foot; F43.9 Reaction to severe stress, unspecified; I10 Essential (primary) hypertension; Z79.1 Long term (current) use of non-steroidal anti-inflammatories (NSAID); Z79.899 Other long term (current) drug therapy; Z96.651 Presence of right artificial knee joint; Z98.891 History of uterine scar from previous surgery; Z87.891 Personal history of nicotine dependence; Z88.5 Allergy status to narcotic agent; Z83.2 Family history of diseases of the blood and blood-forming organs and certain disorders involving the immune mechanism; Z80.7 Family history of other malignant neoplasms of lymphoid, hematopoietic and related tissues; Z80.3 Family history of malignant neoplasm of breast; Z80.0 Family history of malignant neoplasm of digestive organs
CPT/HCPCS: 71045; 85025; 88300